=== PATIENT | male | born 1985 ===

== ENCOUNTER 2020-02-02 17:08 | Emergency (ER) | payer OTHER ==
[2020-02-02] MEDS ORDERED: Adacel (T-DAP) 0.5 ML SYRINGE ONE (17:24)
[2020-02-02] MEDS ORDERED: Lidocaine 1% (PF) 30 ML VIAL ONE (17:24)
== END 2020-02-02 18:25 | disposition home or self-care (01) ==
LOC: ERS 17:08
DX: S01.21XA Laceration without foreign body of nose, initial encounter (principal); F41.9 Anxiety disorder, unspecified; F31.9 Bipolar disorder, unspecified; F43.10 Post-traumatic stress disorder, unspecified; F17.210 Nicotine dependence, cigarettes, uncomplicated; Z79.899 Other long term (current) drug therapy; Y04.0XXA Assault by unarmed brawl or fight, initial encounter
CPT/HCPCS: 12011; 90715; J2001